=== PATIENT | male | born 1985 ===

== ENCOUNTER 2022-02-09 14:27 | Emergency (ER) | payer SELFPAY ==
--- NOTE | 2022-02-09 17:34 | Event Note ---
ED Screening Note ED Screening Note: SMALL LAC LEFT EYE- SUSTAINED YESTERDAY NO LOC NO FOCAL NEURO DEF CO FEELING DEHYDRATED This initial assessment/diagnostic orders/clinical plan/treatment(s) is/are subject to change based on patients health status, clinical progression and re- assessment by fellow clinical providers in the ED. Further treatment and workup at subsequent clinical providers discretion. Patient/guardian urged not to elope from the ED as their condition may be serious if not clinically assessed and managed. Initial orders include: ORTHOSTATICS UA
[2022-02-09 22:30] LABS: Bilirubin,Urine NEG (Negative); Blood,Urine NEG (Negative); Color,Urine Amber (Yellow)
[2022-02-09 22:35] LABS: Hyaline Casts,Urine 6 /LPF; Mucus,Urine FEW /HPF
[2022-02-09] MEDS ORDERED: SODIUM CHLORIDE 0.9% 1000 ML 1,000 ML IV ONE (22:52)
[2022-02-09] MEDS ORDERED: TETANUS,DIPH,PERTUSS(ACELL) VACCINE 0.5 ML SYRINGE IM ONE (22:52)
--- NOTE | 2022-02-10 00:30 | Emergency Department Report ---
ED General Adult HPI - General Chief complaint: Wound/Laceration Stated complaint: DEHYDRATED/LAC TO FOREHEAD Time Seen by Provider: 02/09/22 22:13 Source: patient Mode of arrival: Ambulatory Limitations: No Limitations - History of Present Illness Initial comments: 36-year-old male no significant past medical history reports to the ER with a lack to his head that he sustained at work when he fell. Patient reports that the fall was due to just being tired due to the heat as he works outside. The incident happened around 6:00 PM on 02/08/2022. Patient denies loss of consciousness. No numbness no weakness no headaches currently reported. Patient reports he has not been drinking a lot of water as he supposed to. Patient reports he feels slightly dehydrated. - Related Data Allergies Allergy/AdvReac Type Severity Reaction Status Date / Time No Known Allergies Allergy Unverified 02/09/22 14:32 ED Review of Systems ROS: Stated complaint: DEHYDRATED/LAC TO FOREHEAD Other details as noted in HPI Comment: All other systems reviewed and negative Skin: other (Laceration to left eyebrow) ED Past Medical Hx - Surgical History Past Surgical History?: No - Social History Smoking Status: Current Every Day Smoker Substance Use Type: Alcohol ED Physical Exam - General Limitations: No Limitations General appearance: alert, in no apparent distress - Head Head exam: Present: atraumatic, normocephalic - Eye Eye exam: Present: normal appearance - ENT ENT exam: Present: mucous membranes moist - Neck Neck exam: Present: normal inspection - Respiratory Respiratory exam: Present: normal lung sounds bilaterally. Absent: respiratory distress - Cardiovascular Cardiovascular Exam: Present: regular rate, normal rhythm. Absent: systolic murmur, diastolic murmur, rubs, gallop - GI/Abdominal GI/Abdominal exam: Present: soft, normal bowel sounds - Rectal Rectal exam: Present: deferred - Extremities Exam Extremities exam: Present: normal inspection - Back Exam Back exam: Present: normal inspection - Neurological Exam Neurological exam: Present: alert, oriented X3 - Psychiatric Psychiatric exam: Present: normal affect, normal mood - Skin Skin exam: Present: warm, dry, intact, normal color, other (About a 1 cm laceration to the left eyebrow). Absent: rash ED Course Vital Signs 02/09/22 02/10/22 14:38 00:58 Temperature 98.5 F Pulse Rate 100 H 92 H Respiratory 18 14 Rate Blood Pressure 126/89 Blood Pressure 134/91 [Left] O2 Sat by Pulse 98 100 Oximetry ED Medical Decision Making - Medical Decision Making 36-year-old male no significant past medical history reports to the ER with a lack to his head that he sustained at work when he fell. Patient reports that the fall was due to just being tired due to the heat as he works outside. The incident happened around 6:00 PM on 02/08/2022. Patient denies loss of consciousness. No numbness no weakness no headaches currently reported. Patient reports he has not been drinking a lot of water as he supposed to. Patient reports he feels slightly dehydrated. On physical exam vital 1 cm lacerations noted to left eyebrow bleeding is controlled. No other acute findings on physical exam. IV fluids ordered and Tdap shot ordered. Patient has been informed due to pain over 24 hours since the laceration is advised that is a laceration repair is unable to be performed as the healing process is already started. Patient will need to apply Neosporin and keep his wound clean and dry and intact. Patient agrees with plan of care and verbalizes understanding. Translation was used during this process. Vital Signs 02/09/22 14:38 Temperature 98.5 F Pulse Rate 100 H Respiratory 18 Rate Blood Pressure 126/89 O2 Sat by Pulse 98 Oximetry Vital Signs 02/09/22 02/10/22 14:38 00:58 Temperature 98.5 F Pulse Rate 100 H 92 H Respiratory 18 14 Rate Blood Pressure 126/89 Blood Pressure 134/91 [Left] O2 Sat by Pulse 98 100 Oximetry Critical care attestation.: If time is entered above; I have spent that time in minutes in the direct care of this critically ill patient, excluding procedure time. ED Disposition Clinical Impression: Dehydration after exertion Laceration of eyebrow, left Qualifiers: Encounter type: initial encounter Qualified Code(s): S01.112A - Laceration without foreign body of left eyelid and periocular area, initial encounter Disposition: HOME / SELF CARE / HOMELESS Is pt being admited?: No Condition: Stable Instructions: Laceration Care, Adult, Dehydration, Adult, [id number], Rehydration, Adult, Wound Care, Adult Referrals: PRIMARY CARE, [Primary Care Provider] - 3-5 Days Time of Disposition: 00:37 Print Language: ESTONIAN
[2022-02-10 00:59] VITALS: BP 134/91
== END 2022-02-10 00:59 | disposition home or self-care (01) ==
LOC: ED 14:27
DX: S01.112A Laceration without foreign body of left eyelid and periocular area, initial encounter (principal); E86.0 Dehydration; F17.200 Nicotine dependence, unspecified, uncomplicated; W19.XXXA Unspecified fall, initial encounter; Y93.89 Activity, other specified; Y92.89 Other specified places as the place of occurrence of the external cause; Y99.8 Other external cause status
CPT/HCPCS: 81001; 90471; 90715; 96360; 99283; J7030